=== PATIENT | male | born 1995 | race Hispanic/Latino ===

== ENCOUNTER 2024-03-08 00:24 | Emergency (ER) | payer SELFPAY ==
[~2024-03-08] VITALS: Ht 162.6 cm; Wt 65.0 kg
[2024-03-08] MEDS ORDERED: METHOCARBAMOL 1,000 MG/10 ML VIAL IV ONE (00:45)
[2024-03-08] MEDS ORDERED: KETOROLAC TROMETHAMINE 30 MG/ML SDV IV ONE (00:45)
[2024-03-08 01:09] LABS: BASO% 0.3 % (0-3); EOS% 2.9 % (0-8); HEMOGLOBIN 15.3 g/dl (14.0-18.0); IMMATURE GRANULOCYTES 0.8 % (0.0-5.0); LYMPH% 26.3 % (15-41); MEAN CORPUSCULAR HGB 28.7 pG CALC (26.0-32.0); MEAN CORPUSCULAR HGB CONC 32.6 g/dL CAL (32.0-36.0); MONO% 5.5 % (2-13); NEUT# 8.05 thou/uL (1.82-7.42); NEUT% 64.2 % (42-76); RED BLOOD COUNT 5.34 mill/uL (4.70-6.10); RED CELL DISTRI WIDTH 12.7 % (11.5-15.5)
[2024-03-08 01:18] LABS: ALBUMIN 4.7 g/dL (3.2-5.0); BILIRUBIN, TOTAL 0.5 mg/dL (0.2-1.3); CREATININE 0.7 mg/dL (0.7-1.3); POTASSIUM 3.5 mmol/l (3.5-5.1)
[2024-03-08] MEDS ORDERED: AMOX/K CLAV875 M1 PO (01:28)
[2024-03-08] MEDS ORDERED: traMADol HCL 50 MG/TAB PO ONE (01:30)
[2024-03-08 01:33] VITALS: BP 145/77
[2024-03-09] MEDS ORDERED: NAPROXEN500 MG PO (05:26)
== END 2024-03-08 01:43 | disposition home or self-care (01) | DRG 153 ==
LOC: ED 00:24
PROVIDERS: Family Medicine
DX: J32.9 Chronic sinusitis, unspecified (principal); Z20.822 Contact with and (suspected) exposure to COVID-19
CPT/HCPCS: J2800

== ENCOUNTER 2024-03-09 04:48 | Emergency (ER) | payer SELFPAY ==
[~2024-03-09] VITALS: Ht 162.6 cm; Wt 73.0 kg
[~2024-03-09 04:48] MED LIST: AMOX/K CLAV875 M1 PO
[2024-03-09 05:09] VITALS: BP 106/71
[2024-03-09 05:15] VITALS: BP 103/72
[2024-03-09] MEDS ORDERED: BUTALBITAL-APAP-CAFFEINE 50-325-40 TAB PO ONE (05:25)
[2024-03-09] MEDS ORDERED: KETOROLAC TROMETHAMINE 30 MG/ML SDV IM ONE (05:25)
[2024-03-09] MEDS ORDERED: NAPROXEN500 MG PO (05:26)
[2024-03-09 05:30] VITALS: BP 102/70
[2024-03-09 05:57] VITALS: BP 103/72
== END 2024-03-09 05:57 | disposition home or self-care (01) | DRG 153 ==
LOC: ED 04:48
DX: J32.9 Chronic sinusitis, unspecified (principal)
CPT/HCPCS: J1100